=== PATIENT | female | born 1945 | race Two or more races ===

== ENCOUNTER 2023-01-26 14:57 | Outpatient (CLI) | payer OTHER | END 2023-01-26 15:05 | disposition home or self-care (01) | LOC: RAD 14:57 | PROVIDERS: ATTEND Internal Medicine Hematology & Oncology | DX: C92.10 Chronic myeloid leukemia, BCR/ABL-positive, not having achieved remission (principal) ==

== ENCOUNTER 2023-02-19 21:51 | Inpatient (IN) | payer OTHER ==
[~2023-02-19] VITALS: Ht 154.9 cm; Wt 40.8 kg
--- NOTE | 2023-02-19 22:33 | NUR ---
SE RECIBE FEMENINA DE 77 ANOS ALERTA Y ORIENTADA X3 QUIEN REFIERE SOB Y DOLOR DE PECHO. SE JASMYNE EKG Y SE MONITOREAN SV Y SES UBICA EN CRITICI 2.
[2023-02-19 23:24] LABS: ABG PH 7.329 (7.35-7.45); ABG PO2 78.9 mmHg (80-100); ABG pCO2 39.1 mmHg (35-45); BASE EXCESS -5.3 mmol/l; BICARBONATE 20.1 mmol/l (23-25); SaO2 94.2 %; Tco2 21.3 mmol/l
[2023-02-19 23:25] LABS: allen test SATISFACTORY; o2 100 %; puncture site RADIAL RIGHT
--- NOTE | 2023-02-19 23:58 | NUR ---
A EVALUA A PTE Y GERARDO DA ORDEN DE [place] MEDICO. SE COLECTAN MUESTRAS DE LAB POR PERSONAL DE TERAPIA RESP DE MANERA ARTERIAL, YA QUE SE INTECTO COLECTAR VIA VENA, SALMA NO SE OBTUVO EXITO. SE ADMINISTRAN MEDICAMENTOS ELISHA ORDEN MEDICA. SE INSERTA ZAVALA USANDO MEDIDAS ASEPTICAS Y ESTERILES, PTE TOLERA PROCEDIMIENTO Y SE LE EDUCA SOBRE PROPOSTIO DE GERARDO. AL MOMENTO SE COLOCA BOLSA DE ZAVALA A GRAVEDAD Y VIDES ELIMANDO APROX 600ML.
[2023-02-20 00:01] LABS: HEMOGLOBIN 12.3 g/dL (12.0-15.00); MEAN CELL VOLUME 84.1 fL (80.00-100.00); MEAN CORPUSCULAR HEMOGLOBIN 27.2 pg (27.00-32.0); MEAN CORPUSCULAR HGB CONC 32.3 g/dl (32.0-36.0); PLATELET COUNT 545 K/uL (150-450); RED BLOOD COUNT 4.52 M/uL (4.00-6.00); RED CELL DISTRIBUTION WIDTH 17.8 % (11.5-14.5)
[2023-02-20 00:13] LABS: BILIRUBIN TOTAL 0.17 mg/dL (0.3-1.2); CALCIUM 8.6 mg/dL (8.5-10.1); CREATININE SERUM 1.25 mg/dL (0.55-1.02); GFR 41.78; GLOBULINA 5.4 G/DL (2.4-3.5); POTASSIUM 3.97 mEq/L (3.5-5.1); TOTAL PROTEIN 8.4 gm/dL (6.4-8.2)
[2023-02-20 00:15] LABS: ALT/SGPT 38 U/L (12-78); AST/SGOT 57 U/L (15-37); LDH 235 U/L (84-246); PHOSPHOKINASE CREATININE 84 U/L (26-192)
[2023-02-20 03:16] LABS: ABG PH 7.412 (7.35-7.45); ABG PO2 155.5 mmHg (80-100); ABG pCO2 34.3 mmHg (35-45); BASE EXCESS -2.4 mmol/l; BICARBONATE 21.3 mmol/l (23-25); SaO2 99.4 %; Tco2 22.4 mmol/l
--- NOTE | 2023-02-20 04:55 | NUR ---
SE NOTIFICA A QUE PTE REFIERE DOLOR DE LISETH. EL MISMO DA ORDEN VERBAL DE QUE SE ADMINISTRE MED ADM PARA ALIVIAR DOLOR BAJO LA FIRMA DEL . SE ADM MED ELISHA ORDEN MEDICA.
[2023-02-20 05:44] LABS: INR 1.13; PARTIAL THROMBOPLASTIN TIME 28.8 SECONDS (22.0-34.0); PROTHROMBIN TIME 11.8 SECONDS (9.0-11.5)
[2023-02-20 07:12] LABS: allen test SATISFACTORY; o2 100 %; puncture site RADIAL RIGHT
--- NOTE | 2023-02-20 08:11 | NUR ---
SE RECIBE PTE ALERTA Y ORIENTADO POR 3 EN EL AREA DE CRITICO EN EL CUBICULO #2 CONECTADO A MONITO CARDIACO Y OXIMETRIA DE PULSO, PTE CAQNALIZADA EN EL BRAZO DERECHO CON ANGIO #20 SE OBSERVA VENOPUNCION PATENTE Y HAILEE DE EDEMA, PTE NO PRESENTA DOLOR AL MOMENTO PTE SE MANTIENE EN OBSERVACION Y BAJO TRATAMIENTO EN ESPERA DEL DR OTT.
[2023-02-20 14:22] LABS: CKMB 5.1 NG/ML (0.5-3.6)
[2023-02-20 21:25] LABS: CKMB 3.2 NG/ML (0.5-3.6)
[2023-02-21 06:43] LABS: HEMATOCRIT 30.1 % (36.0-45.00); MEAN CELL VOLUME 81.8 fL (80.00-100.00); MEAN CORPUSCULAR HEMOGLOBIN 27.1 pg (27.00-32.0); MEAN CORPUSCULAR HGB CONC 33.2 g/dl (32.0-36.0); PLATELET COUNT 410 K/uL (150-450); RED BLOOD COUNT 3.68 M/uL (4.00-6.00); RED CELL DISTRIBUTION WIDTH 16.8 % (11.5-14.5)
[2023-02-21 07:07] LABS: ERYTHROCYTE SEDIMENTATION RATE > 130 mm/hr
[2023-02-21 07:10] LABS: PH,URINE 5.5 (5.0-8.0); URINE APPEARANCE Turbid; URINE BILIRRUBIN Negative (NEGATIVE); URINE BLOOD Moderate; URINE COLOR Yellow; URINE GLUCOSE Negative (NEGATIVE); URINE LEUKOCYTE Large; URINE NITRATE Negative; URINE UROBILINOGEN 0.2 E.U./dl
[2023-02-21 07:21] LABS: CKMB 2.4 NG/ML (0.5-3.6)
[2023-02-21 07:25] LABS: URINE EPITHELIAL CELLS 19.4 uL (0.0-38.8); URINE RBC 76.1 uL (0.0-20.8)
[2023-02-21 07:27] LABS: BILIRUBIN TOTAL 0.39 mg/dL (0.3-1.2); CALCIUM 8.7 mg/dL (8.5-10.1); CREATININE SERUM 1.11 mg/dL (0.55-1.02); GFR 47.92; GLOBULINA 4.4 G/DL (2.4-3.5); POTASSIUM 3.61 mEq/L (3.5-5.1); T4 FREE 1.02 NG/ML (0.76-1.46); TOTAL PROTEIN 7.4 gm/dL (6.4-8.2); TSH 2.06 uIU/mL (0.358-3.74)
[2023-02-21 07:40] LABS: URINE BACTERIA > 9821.5 uL (0.0-1933); URINE PROTEIN 100 (NEGATIVE)
[2023-02-21 07:42] LABS: C-REACTIVE PROTEIN 2.53 MG/DL (0.00-0.29); CHOL HDL RATIO 5.4 (0-5.0)
[2023-02-21 09:36] LABS: INR 1.14; PARTIAL THROMBOPLASTIN TIME 31.4 SECONDS (22.0-34.0); PROTHROMBIN TIME 11.9 SECONDS (9.0-11.5)
[2023-02-22 08:32] LABS: URINE PROT QUANT 24HR 58.4 MG/DL
[2023-02-22 08:36] LABS: URINE PROT QUANT 24 HR 861.4 MG/24HR (42-225)
[2023-02-23 06:25] LABS: HEMATOCRIT 27.1 % (36.0-45.00); HEMOGLOBIN 9.4 g/dL (12.0-15.00); MEAN CELL VOLUME 81.5 fL (80.00-100.00); MEAN CORPUSCULAR HEMOGLOBIN 28.4 pg (27.00-32.0); MEAN CORPUSCULAR HGB CONC 34.9 g/dl (32.0-36.0); PLATELET COUNT 359 K/uL (150-450); RED BLOOD COUNT 3.33 M/uL (4.00-6.00)
[2023-02-23 06:55] LABS: ALBUMIN 2.8 gm/dL (3.4-5.0); BILIRUBIN TOTAL 0.19 mg/dL (0.3-1.2); CALCIUM 8.4 mg/dL (8.5-10.1); CREATININE SERUM 1.19 mg/dL (0.55-1.02); GFR 44.22; GLOBULINA 4.6 G/DL (2.4-3.5); POTASSIUM 3.3 mEq/L (3.5-5.1); TOTAL PROTEIN 7.4 gm/dL (6.4-8.2)
[2023-02-23 07:04] LABS: C-REACTIVE PROTEIN 5.45 MG/DL (0.00-0.29)
[2023-02-23 07:07] LABS: ERYTHROCYTE SEDIMENTATION RATE > 130 mm/hr
[2023-02-27 07:48] LABS: HEMATOCRIT 28.8 % (36.0-45.00); MEAN CELL VOLUME 83.5 fL (80.00-100.00); MEAN CORPUSCULAR HGB CONC 33.5 g/dl (32.0-36.0); PLATELET COUNT 466 K/uL (150-450); RED BLOOD COUNT 3.44 M/uL (4.00-6.00)
[2023-02-27 08:03] LABS: HEMOGLOBIN 9.6 g/dL (12.0-15.00); MEAN CORPUSCULAR HEMOGLOBIN 27.9 pg (27.00-32.0)
[2023-02-27 08:40] LABS: CREATININE SERUM 1.21 mg/dL (0.55-1.02); GFR 43.38; MAGNESIUM 1.6 mg/dL (1.8-2.4); PHOSPHOROUS 3.8 mg/dL (2.5-4.9); POTASSIUM 4.43 mEq/L (3.5-5.1)
[2023-02-27 08:48] LABS: C-REACTIVE PROTEIN 6.15 MG/DL (0.00-0.29)
[2023-03-01 10:22] LABS: HEMATOCRIT 28.2 % (36.0-45.00); HEMOGLOBIN 9.6 g/dL (12.0-15.00); MEAN CELL VOLUME 82.4 fL (80.00-100.00); MEAN CORPUSCULAR HGB CONC 33.9 g/dl (32.0-36.0); PLATELET COUNT 485 K/uL (150-450); RED BLOOD COUNT 3.43 M/uL (4.00-6.00); RED CELL DISTRIBUTION WIDTH 16.8 % (11.5-14.5)
[2023-03-01 10:33] LABS: ERYTHROCYTE SEDIMENTATION RATE 85 mm/hr
[2023-03-01 10:59] LABS: CALCIUM 9.2 mg/dL (8.5-10.1); CREATININE SERUM 1.68 mg/dL (0.55-1.02); GFR 29.7; MAGNESIUM 1.5 mg/dL (1.8-2.4); PHOSPHOROUS 4.7 mg/dL (2.5-4.9); POTASSIUM 4.36 mEq/L (3.5-5.1)
[2023-03-01 11:00] LABS: C-REACTIVE PROTEIN 3.33 MG/DL (0.00-0.29)
[2023-03-04 05:49] LABS: HEMATOCRIT 27.4 % (36.0-45.00); MEAN CELL VOLUME 82.8 fL (80.00-100.00); MEAN CORPUSCULAR HGB CONC 33.2 g/dl (32.0-36.0); PLATELET COUNT 494 K/uL (150-450); RED BLOOD COUNT 3.31 M/uL (4.00-6.00); RED CELL DISTRIBUTION WIDTH 16.5 % (11.5-14.5)
[2023-03-04 05:57] LABS: ALBUMIN 2.9 gm/dL (3.4-5.0); BILIRUBIN TOTAL 0.15 mg/dL (0.3-1.2); CREATININE SERUM 1.66 mg/dL (0.55-1.02); GFR 30.12; GLOBULINA 4.3 G/DL (2.4-3.5); POTASSIUM 4.09 mEq/L (3.5-5.1); TOTAL PROTEIN 7.2 gm/dL (6.4-8.2)
[2023-03-04 05:59] LABS: C-REACTIVE PROTEIN 1.62 MG/DL (0.00-0.29)
[2023-03-04 06:06] LABS: HEMOGLOBIN 9.1 g/dL (12.0-15.00); MEAN CORPUSCULAR HEMOGLOBIN 27.4 pg (27.00-32.0)
[2023-03-04 06:10] LABS: ERYTHROCYTE SEDIMENTATION RATE 89 mm/hr
[2023-03-04] MEDS ORDERED: ALPRAZOLAM1 MG PO (13:56)
[2023-03-04] MEDS ORDERED: TOPROL XL50 M1 PO (13:56)
[2023-03-04] MEDS ORDERED: BUMETANIDE1 MG PO (13:56)
[2023-03-04] MEDS ORDERED: INTEGRA PLUS C1 EACH PO (13:56)
[2023-03-04] MEDS ORDERED: POM (MEDICAMENTO EN PO (13:56)
[2023-03-04] MEDS ORDERED: PANTOPRAZOLE SO40 MG PO (13:56)
[2023-03-04] MEDS ORDERED: NeuRONTin 400MG CAPS PO (13:56)
[2023-03-04] MEDS ORDERED: BRILINTA90 MG PO (13:56)
[2023-03-04] MEDS ORDERED: FAMOTIDINE20 MG PO (13:56)
[2023-03-04] MEDS ORDERED: LIPITOR40 M1 PO (13:56)
[2023-03-04] MEDS ORDERED: Neurin-Sl Tablet Sl SL (13:56)
== END 2023-03-04 18:20 | disposition home or self-care (01) | DRG 281 ==
LOC: ER 21:51 → ICU-2 02-20 13:19 → SEC-K 02-23 07:15 → MEDI 02-23 19:59 → MEDJ 02-28 14:50
PROVIDERS: Emergency Medicine; Internal Medicine Geriatric Medicine; Internal Medicine Nephrology; ADMIT Internal Medicine; ATTEND Internal Medicine
PROC: B24BYZZ Ultrasonography of Heart with Aorta using Other Contrast (ICD-10-PCS; 2023-02-20)
PROC: 3E0F7GC Introduction of Other Therapeutic Substance into Respiratory Tract, Via Natural or Artificial Opening (ICD-10-PCS; 2023-02-20)
PROC: 02HV33Z Insertion of Infusion Device into Superior Vena Cava, Percutaneous Approach (ICD-10-PCS; 2023-02-21)
PROC: BT43ZZZ Ultrasonography of Bilateral Kidneys (ICD-10-PCS; 2023-02-22)
PROC: 4A12X4Z Monitoring of Cardiac Electrical Activity, External Approach (ICD-10-PCS; 2023-02-23)
PROC: 8E0ZXY6 Isolation (ICD-10-PCS; principal; 2023-03-01)
DX: I11.0 Hypertensive heart disease with heart failure (principal); I21.4 Non-ST elevation (NSTEMI) myocardial infarction; I24.9 Acute ischemic heart disease, unspecified; J90 Pleural effusion, not elsewhere classified; N39.0 Urinary tract infection, site not specified; I50.9 Heart failure, unspecified; I10 Essential (primary) hypertension; I50.1 Left ventricular failure, unspecified; J40 Bronchitis, not specified as acute or chronic; Z85.3 Personal history of malignant neoplasm of breast; I50.20 Unspecified systolic (congestive) heart failure; B96.20 Unspecified Escherichia coli [E. coli] as the cause of diseases classified elsewhere; E11.40 Type 2 diabetes mellitus with diabetic neuropathy, unspecified; Z79.4 Long term (current) use of insulin; B96.1 Klebsiella pneumoniae [K. pneumoniae] as the cause of diseases classified elsewhere

== ENCOUNTER 2023-10-31 10:28 | Inpatient (IN) | payer OTHER ==
[~2023-10-31] VITALS: Ht 154.9 cm; Wt 45.4 kg
[~2023-10-31 10:28] MED LIST: ALPRAZOLAM1 MG PO; BRILINTA90 MG PO; BUMETANIDE1 MG PO; FAMOTIDINE20 MG PO; INTEGRA PLUS C1 EACH PO; LIPITOR40 M1 PO; NeuRONTin 400MG CAPS PO; Neurin-Sl Tablet Sl SL; PANTOPRAZOLE SO40 MG PO; POM (MEDICAMENTO EN PO; TOPROL XL50 M1 PO
--- NOTE | 2023-10-31 10:51 | NUR ---
PACIENTE ALERTA Y ORIENTADA X3. SE RECIBE EN AMBULANCIA POR MALESTAR GENERAL, DOLOR MUSCULAR, FIEBRE, TOS, DEBILIDAD. PACIENTE SATURANDO OXIGENO MANUAL A 90%, DXT 168MG/DL. PACIENTE CON MASTECTOMIA DE SENO L+, AMPUTACION DE PIERNA IZQUIERDA Y EDEMA EN BRAZO IZQUEIRDO. PACIENTE REFIERE LLEVA ASI MAS DE GURU SONG. SE UBICA EN CAMA CON BARANDAS ELEVADAS.
--- NOTE | 2023-10-31 11:41 | NUR ---
PACIENTE EVALUADA POR MD CALIXTOIEN ORDENA TRATAMIENTO MEDICO, SE LE ORIENTA A PACIENTE SOBRE EL MISMO Y VERBALIZA ENTENDER, SE LE COLECTAN MUESTRAS Y SE CANALIZA BAJO MEDIDAS ASEPTICAS. SE LE INSERTA FOLYE CATETER BAJO MEDIDAS ESTERILES.
[2023-10-31 11:56] LABS: ABG PH 7.417 (7.35-7.45); ABG PO2 75.7 mmHg (80-100); ABG pCO2 30.3 mmHg (35-45); SaO2 95.1 %
[2023-10-31 11:57] LABS: BASE EXCESS -1.4 mmol/l; BICARBONATE 19.1 mmol/l (23-25); allen test SATISFACTORY; o2 28 %; puncture site RADIAL LEFT
[2023-10-31 12:03] LABS: PH,URINE 5.5 (5.0-8.0); URINE APPEARANCE Clear; URINE BILIRRUBIN Negative (NEGATIVE); URINE BLOOD Negative; URINE COLOR Yellow; URINE GLUCOSE Negative (NEGATIVE); URINE LEUKOCYTE Negative; URINE NITRATE Negative; URINE UROBILINOGEN 0.2 E.U./dl
[2023-10-31 12:04] LABS: HEMATOCRIT 27.9 % (36.0-45.00); HEMOGLOBIN 9.6 g/dL (12.0-15.00); MEAN CORPUSCULAR HEMOGLOBIN 29.7 pg (27.00-32.0); MEAN CORPUSCULAR HGB CONC 34.6 g/dl (32.0-36.0); PLATELET COUNT 496 K/uL (150-450); RED BLOOD COUNT 3.24 M/uL (4.00-6.00); RED CELL DISTRIBUTION WIDTH 14.2 % (11.5-14.5)
[2023-10-31 12:06] LABS: URINE BACTERIA 8.8 uL (0.0-1933); URINE RBC 4.7 uL (0.0-20.8)
[2023-10-31] MEDS ORDERED: FUROsemide 20 MG/2 ML VIAL IV STA (12:07)
[2023-10-31 12:18] LABS: URINE PROTEIN 100 (NEGATIVE); URINE WBC 0.9 uL (0.0-23.2)
[2023-10-31 12:23] LABS: BILIRUBIN TOTAL 0.24 mg/dL (0.3-1.2); CALCIUM 8.9 mg/dL (8.5-10.1); CREATININE SERUM 1.28 mg/dL (0.55-1.02); GFR 40.54; GLOBULINA 5.3 G/DL (2.4-3.5); INR 1.04; PARTIAL THROMBOPLASTIN TIME 31.9 SECONDS (22.0-34.0); POTASSIUM 4.47 mEq/L (3.5-5.1); PROTHROMBIN TIME 10.9 SECONDS (9.0-11.5); TOTAL PROTEIN 8.3 gm/dL (6.4-8.2)
[2023-10-31 14:14] LABS: C-REACTIVE PROTEIN 5.27 MG/DL (0.00-0.29)
--- NOTE | 2023-10-31 18:43 | NUR ---
SE RECIBE PACIENTE ALERTA Y ORIENTADA X 3 ESFERAS EN CAMA CON BARANDAS ELEVADAS POR SEGURIDAD EN COMPANIA DE FAMILIAR. H/L EN BRAZO DERECHO AREA HAILEE DE EDEMA Y ERITEMA. SONDA URINARIA DRENANDO A GRAVEDAD. PENDIENTE CONSULTA CON DR.RIVERA PATEL. SE MANTIENE EN OBSERVACION POR CAMBIOS.
[2023-10-31] MEDS ORDERED: IPRATROPIUM BROMIDE 0.5 MG/2.5 ML AMPUL.NEB IH SCH (19:15)
[2023-10-31] MEDS ORDERED: CEFTRIAXONE SODIUM 2,000 MG in 0.9 % SODIUM CHLORIDE 100 ML IV SCH (19:22)
[2023-10-31] MEDS ORDERED: NITROGLYCERIN IN 5 % DEXTROSE 250 ML IV SCH (19:34)
[2023-10-31] MEDS ORDERED: KETOROLAC TROMETHAMINE 30 MG VIAL IU ONE (19:45)
[2023-10-31] MEDS ORDERED: DEXTROSE 50 % IN WATER 0.5 G/ML DISP.SYRIN IV PRN (20:00)
[2023-10-31] MEDS ORDERED: INSULIN LISPRO 1,000 UNIT/10 ML UNITS SUBCUTANEO PRN (20:00)
[2023-10-31 20:08] LABS: ABG PH 7.421 (7.35-7.45); ABG PO2 93.4 mmHg (80-100); ABG pCO2 32.3 mmHg (35-45); BASE EXCESS -2.9 mmol/l; BICARBONATE 20.5 mmol/l (23-25); SaO2 97.3 %; Tco2 21.5 mmol/l
[2023-10-31 20:22] LABS: allen test SATISFACTORY; o2 21 %; puncture site RADIAL RIGHT
[2023-10-31] MEDS ORDERED: FUROsemide 20 MG/2 ML VIAL IV SCH (21:00)
[2023-11-01] MEDS ORDERED: ENOXAPARIN SODIUM 40 MG/0.4 ML SYRINGE SUBCUTANEO SCH (09:00)
[2023-11-01] MEDS ORDERED: METOPROLOL SUCCINATE 25 MG TAB.SR.24H PO SCH (09:00)
[2023-11-01] MEDS ORDERED: FAMOTIDINE/PF 20 MG in 0.9 % SODIUM CHLORIDE 8 ML IV PUSH SCH (09:00)
[2023-11-01] MEDS ORDERED: KETOROLAC TROMETHAMINE 30 MG VIAL IM SCH (10:35)
[2023-11-01] MEDS ORDERED: TRAMADOL HCL 50 MG TABLET PO SCH (10:47)
[2023-11-02 05:36] LABS: HEMATOCRIT 28.6 % (36.0-45.00); HEMOGLOBIN 9.9 g/dL (12.0-15.00); MEAN CELL VOLUME 87.4 fL (80.00-100.00); MEAN CORPUSCULAR HEMOGLOBIN 30.2 pg (27.00-32.0); MEAN CORPUSCULAR HGB CONC 34.6 g/dl (32.0-36.0); PLATELET COUNT 414 K/uL (150-450); RED BLOOD COUNT 3.27 M/uL (4.00-6.00); RED CELL DISTRIBUTION WIDTH 14.4 % (11.5-14.5)
[2023-11-02 05:59] LABS: ALBUMIN 2.7 gm/dL (3.4-5.0); BILIRUBIN TOTAL 0.17 mg/dL (0.3-1.2); CALCIUM 8.8 mg/dL (8.5-10.1); CREATININE SERUM 1.3 mg/dL (0.55-1.02); GFR 39.82; GLOBULINA 4.4 G/DL (2.4-3.5); MAGNESIUM 1.7 mg/dL (1.8-2.4); PHOSPHOROUS 3.9 mg/dL (2.5-4.9); POTASSIUM 4.34 mEq/L (3.5-5.1); TOTAL PROTEIN 7.1 gm/dL (6.4-8.2)
[2023-11-02 07:05] LABS: MYCOPLASMA PNEUMONIAE IGM REACTIVE (NO REACTIVE)
[2023-11-02] MEDS ORDERED: levoFLOXacin IN DEXTROSE 5 % 150 ML IV SCH (17:00)
[2023-11-04 06:20] LABS: HEMATOCRIT 25.2 % (36.0-45.00); MEAN CELL VOLUME 86.1 fL (80.00-100.00); MEAN CORPUSCULAR HGB CONC 34.8 g/dl (32.0-36.0); PLATELET COUNT 364 K/uL (150-450); RED BLOOD COUNT 2.93 M/uL (4.00-6.00); RED CELL DISTRIBUTION WIDTH 14.3 % (11.5-14.5)
[2023-11-04 06:26] LABS: ALBUMIN 2.4 gm/dL (3.4-5.0); BILIRUBIN TOTAL 0.17 mg/dL (0.3-1.2); CALCIUM 8.6 mg/dL (8.5-10.1); CREATININE SERUM 1.61 mg/dL (0.55-1.02); GFR 31.11; GLOBULINA 3.7 G/DL (2.4-3.5); POTASSIUM 4.25 mEq/L (3.5-5.1); TOTAL PROTEIN 6.1 gm/dL (6.4-8.2)
[2023-11-04 06:32] LABS: HEMOGLOBIN 8.8 g/dL (12.0-15.00)
[2023-11-04] MEDS ORDERED: TRAMADOL HCL 50 MG TABLET PO SCH (21:00)
[2023-11-04] MEDS ORDERED: GABAPENTIN 300 MG CAPSULE PO SCH (21:00)
[2023-11-05] MEDS ORDERED: FAMOTIDINE/PF 20 MG/2 ML VIAL ONE (07:58)
[2023-11-05] MEDS ORDERED: ALPRAzolam 1 MG TABLET PO SCH (10:16)
[2023-11-05] MEDS ORDERED: TRAMADOL HCL 50 MG TABLET PO SCH (17:00)
[2023-11-06 08:03] LABS: HEMATOCRIT 26.6 % (36.0-45.00); HEMOGLOBIN 9.3 g/dL (12.0-15.00); MEAN CELL VOLUME 86.3 fL (80.00-100.00); MEAN CORPUSCULAR HEMOGLOBIN 30.2 pg (27.00-32.0); PLATELET COUNT 426 K/uL (150-450); RED BLOOD COUNT 3.08 M/uL (4.00-6.00); RED CELL DISTRIBUTION WIDTH 14.3 % (11.5-14.5)
[2023-11-06 08:18] LABS: ALBUMIN 2.6 gm/dL (3.4-5.0); BILIRUBIN TOTAL 0.18 mg/dL (0.3-1.2); CALCIUM 8.9 mg/dL (8.5-10.1); CREATININE SERUM 1.35 mg/dL (0.55-1.02); GFR 38.13; GLOBULINA 3.7 G/DL (2.4-3.5); POTASSIUM 4.28 mEq/L (3.5-5.1); TOTAL PROTEIN 6.3 gm/dL (6.4-8.2)
[2023-11-07 19:07] LABS: PLEURAL FLUID APPEARANCE TURBID
[2023-11-07 19:08] LABS: PLEURAL FLUID COLOR RED-BLOODY
[2023-11-07 19:22] LABS: TP PLEURAL FLUID 5.1 g/dl
[2023-11-07 19:59] LABS: MONONUCLEAR 94 %; POLYMORPHONUCLEAR 6 %
[2023-11-08] MEDS ORDERED: TRAMADOL HCL 50 MG TABLET PO SCH ×2 (12:37→21:00)
[2023-11-09] MEDS ORDERED: DOCUSATE CALCIUM 240 MG CAPSULE PO SCH (11:14)
[2023-11-09] MEDS ORDERED: FAMOTIDINE/PF 20 MG/2 ML VIAL IV SCH (23:00)
[2023-11-11 07:04] LABS: HEMATOCRIT 29.9 % (36.0-45.00); HEMOGLOBIN 10.3 g/dL (12.0-15.00); MEAN CELL VOLUME 84.9 fL (80.00-100.00); MEAN CORPUSCULAR HEMOGLOBIN 29.2 pg (27.00-32.0); MEAN CORPUSCULAR HGB CONC 34.4 g/dl (32.0-36.0); PLATELET COUNT 422 K/uL (150-450); RED BLOOD COUNT 3.52 M/uL (4.00-6.00); RED CELL DISTRIBUTION WIDTH 14.1 % (11.5-14.5)
[2023-11-11 07:38] LABS: ALBUMIN 2.6 gm/dL (3.4-5.0); BILIRUBIN TOTAL 0.36 mg/dL (0.3-1.2); CREATININE SERUM 1.66 mg/dL (0.55-1.02); GFR 30.04; GLOBULINA 4.3 G/DL (2.4-3.5); MAGNESIUM 1.4 mg/dL (1.8-2.4); PHOSPHOROUS 3.9 mg/dL (2.5-4.9); POTASSIUM 3.87 mEq/L (3.5-5.1); TOTAL PROTEIN 6.9 gm/dL (6.4-8.2)
[2023-11-11] MEDS ORDERED: MOMETASONE FUROATE 15 GM TUBE TOP SCH ×2 (21:00)
[2023-11-12] MEDS ORDERED: TRAMADOL HCL 50 MG TABLET PO SCH (21:00)
[2023-11-13] MEDS ORDERED: TRAMADOL HCL 50 MG TABLET PO SCH (13:00)
[2023-11-13] MEDS ORDERED: GABAPENTIN 300 MG CAPSULE PO SCH (17:00)
[2023-11-13] MEDS ORDERED: ALPRAzolam 1 MG TABLET PO SCH (21:00)
[2023-11-15] MEDS ORDERED: FAMOtidine 20 MG TABLET PO SCH (09:00)
== END 2023-11-17 14:33 | disposition home or self-care (01) | DRG 291 ==
LOC: ER 10:28 → MEDI 20:12 → MEDJ 11-10 15:11
PROVIDERS: Emergency Medicine; General Practice; Internal Medicine; Internal Medicine Infectious Disease; Radiology Vascular & Interventional Radiology; ADMIT Internal Medicine; ATTEND Internal Medicine
PROC: 3E0F7GC Introduction of Other Therapeutic Substance into Respiratory Tract, Via Natural or Artificial Opening (ICD-10-PCS; 2023-11-01)
PROC: 4A12X4Z Monitoring of Cardiac Electrical Activity, External Approach (ICD-10-PCS; 2023-11-01)
PROC: 0W9B30Z Drainage of Left Pleural Cavity with Drainage Device, Percutaneous Approach (ICD-10-PCS; principal; 2023-11-07)
PROC: 0W9930Z Drainage of Right Pleural Cavity with Drainage Device, Percutaneous Approach (ICD-10-PCS; 2023-11-08)
PROC: 5A0945A Assistance with Respiratory Ventilation, 24-96 Consecutive Hours, High Flow/Velocity Cannula (ICD-10-PCS; 2023-11-12)
PROC: 0WPBX0Z Removal of Drainage Device from Left Pleural Cavity, External Approach (ICD-10-PCS; 2023-11-16)
DX: I11.0 Hypertensive heart disease with heart failure (principal); I50.31 Acute diastolic (congestive) heart failure; J91.8 Pleural effusion in other conditions classified elsewhere; I31.39 Other pericardial effusion (noninflammatory); J95.811 Postprocedural pneumothorax; B96.0 Mycoplasma pneumoniae [M. pneumoniae] as the cause of diseases classified elsewhere; E11.9 Type 2 diabetes mellitus without complications; Z95.818 Presence of other cardiac implants and grafts; F41.9 Anxiety disorder, unspecified; Z79.4 Long term (current) use of insulin

== ENCOUNTER 2023-12-01 15:36 | Inpatient (IN) | payer OTHER ==
[~2023-12-01] VITALS: Ht 154.9 cm; Wt 47.6 kg
--- NOTE | 2023-12-01 16:22 | NUR ---
SE RECIBE PACIENTE ALERTA Y ORIENTADA X 3 ESFERAS LA CUAL INDICA QUE PRESENTA DEBILIDAD DESDE HACE DOS SONG. PACIENTE INDICA QUE PRESENTA DOLOR DE PECHO DESDE HACE SOY SEMANA POR LA INSERCION DE UN TUBO DE PECHO.
[2023-12-01] MEDS ORDERED: 0.9 % SODIUM CHLORIDE 1,000 ML IV STA (17:04)
[2023-12-01 18:25] LABS: HEMATOCRIT 26.8 % (36.0-45.00); HEMOGLOBIN 9.4 g/dL (12.0-15.00); MEAN CELL VOLUME 83.4 fL (80.00-100.00); MEAN CORPUSCULAR HEMOGLOBIN 29.1 pg (27.00-32.0); MEAN CORPUSCULAR HGB CONC 34.9 g/dl (32.0-36.0); PLATELET COUNT 761 K/uL (150-450); RED BLOOD COUNT 3.22 M/uL (4.00-6.00); RED CELL DISTRIBUTION WIDTH 14.3 % (11.5-14.5)
--- NOTE | 2023-12-01 18:27 | NUR ---
PTE ALERTA Y ORIENTADA X3, RN RHODES ORIENTA SOBRE TX MEDICO Y REFIERE ACEPTAR. CANALIZA Y COLECTA MUESTRAS DE LAB BAJO MEDIDAS ASEPTICAS. PENDIENTE A REALIZAR ABG Y CT.
[2023-12-01 18:42] LABS: ABG PH 7.503 (7.35-7.45); ABG PO2 76.9 mmHg (80-100); ABG pCO2 23.1 mmHg (35-45); BASE EXCESS -3.2 mmol/l; BICARBONATE 17.7 mmol/l (23-25); SaO2 96.4 %; Tco2 18.4 mmol/l
[2023-12-01 18:43] LABS: allen test SATISFACTORY; o2 21 %; puncture site RADIAL RIGHT
[2023-12-01 18:45] LABS: INR 1.07; PARTIAL THROMBOPLASTIN TIME 33.4 SECONDS (22.0-34.0); PROTHROMBIN TIME 11.2 SECONDS (9.0-11.5)
[2023-12-01 18:56] LABS: BILIRUBIN TOTAL 0.22 mg/dL (0.3-1.2); CALCIUM 8.1 mg/dL (8.5-10.1); CREATININE SERUM 1.21 mg/dL (0.55-1.02); GFR 43.26; GLOBULINA 5.6 G/DL (2.4-3.5); POTASSIUM 4.05 mEq/L (3.5-5.1); TOTAL PROTEIN 7.6 gm/dL (6.4-8.2)
--- NOTE | 2023-12-01 21:59 | NUR ---
SE RECIBE PACIENTE ALERTA Y ORIENTADA X3 DE OBSERVACION. SE UBICA EN CAMA #2 DE ICU-2. SE CONECTA A MONITOR CARDIACO Y OXIMETRIA DE PULSO. SE ORIENTA A FAMILIAR ACERCA DE REGLAS DE LA UNIDAD Y REFIERE ENTENDER. SE JOSE ANTONIO A PACIENTE EN CAMA CON BARANDAS ELEVADAS Y A NIVEL MAS BAJO EN ESPERA DE ORDENES MEDICAS.
[2023-12-01] MEDS ORDERED: ACETAMINOPHEN 500 MG GEL..CAP PO PRN (23:45)
[2023-12-01] MEDS ORDERED: ONDANSETRON HCL 4 MG in 0.9 % SODIUM CHLORIDE 50 ML IV PRN (23:45)
[2023-12-01] MEDS ORDERED: CEFEPIME HCL 1,000 MG in 0.9 % SODIUM CHLORIDE 50 ML IV SCH (23:46)
[2023-12-01] MEDS ORDERED: FUROsemide 20 MG/2 ML VIAL IV SCH (23:49)
[2023-12-02 01:38] LABS: PH,URINE 5.5 (5.0-8.0); URINE APPEARANCE Clear; URINE BILIRRUBIN Negative (NEGATIVE); URINE BLOOD Negative; URINE COLOR Yellow; URINE GLUCOSE Negative (NEGATIVE); URINE KETONE Negative (NEGATIVE); URINE LEUKOCYTE Negative; URINE NITRATE Negative; URINE UROBILINOGEN 0.2 E.U./dl
[2023-12-02 01:39] LABS: URINE BACTERIA 17.6 uL (0.0-1933); URINE EPITHELIAL CELLS 4.4 uL (0.0-38.8); URINE RBC 5.9 uL (0.0-20.8); URINE WBC 3.7 uL (0.0-23.2)
[2023-12-02 01:42] LABS: URINE PROTEIN 100 (NEGATIVE)
[2023-12-02] MEDS ORDERED: VANCOMYCIN HCL 1,000 MG VIAL IV SCH (09:00)
[2023-12-02] MEDS ORDERED: FAMOTIDINE/PF 20 MG in 0.9 % SODIUM CHLORIDE 8 ML IV PUSH SCH (09:00)
[2023-12-02] MEDS ORDERED: ENOXAPARIN SODIUM 30 MG/0.3 ML SYRINGE SUBCUTANEO SCH (09:00)
[2023-12-02 19:58] LABS: TP PLEURAL FLUID 4.6 g/dl
[2023-12-02] MEDS ORDERED: ALPRAzolam 0.5 MG TABLET PO SCH (21:00)
[2023-12-02 21:25] LABS: MONONUCLEAR 28 %; PLEURAL FLUID APPEARANCE HAZY; PLEURAL FLUID COLOR YELLOW; POLYMORPHONUCLEAR 72 %
[2023-12-03] MEDS ORDERED: METRONIDAZOLE/SODIUM CHLORIDE 500 MG/100 ML PIGGYBACK IV SCH (17:00)
[2023-12-06 09:27] LABS: MEAN CELL VOLUME 82.6 fL (80.00-100.00); MEAN CORPUSCULAR HEMOGLOBIN 27.7 pg (27.00-32.0); MEAN CORPUSCULAR HGB CONC 33.5 g/dl (32.0-36.0); PLATELET COUNT 834 K/uL (150-450); RED BLOOD COUNT 3.03 M/uL (4.00-6.00); RED CELL DISTRIBUTION WIDTH 14.8 % (11.5-14.5)
[2023-12-06 09:28] LABS: HEMOGLOBIN 8.4 g/dL (12.0-15.00)
[2023-12-06 10:21] LABS: BILIRUBIN TOTAL 0.33 mg/dL (0.3-1.2); CALCIUM 8.6 mg/dL (8.5-10.1); CREATININE SERUM 1.39 mg/dL (0.55-1.02); GFR 36.86; POTASSIUM 4.14 mEq/L (3.5-5.1)
[2023-12-06] MEDS ORDERED: KETOROLAC TROMETHAMINE 30 MG VIAL IM ONE (20:15)
[2023-12-06] MEDS ORDERED: NITROGLYCERIN IN 5 % DEXTROSE 50 MG/250 ML BOTTLE IV ONE (20:45)
[2023-12-06] MEDS ORDERED: NITROGLYCERIN IN 5 % DEXTROSE 50 MG/250 ML BOTTLE IV SCH (21:00)
[2023-12-07 08:55] LABS: MEAN CELL VOLUME 81.3 fL (80.00-100.00); MEAN CORPUSCULAR HGB CONC 33.6 g/dl (32.0-36.0); PLATELET COUNT 739 K/uL (150-450); RED BLOOD COUNT 2.69 M/uL (4.00-6.00); RED CELL DISTRIBUTION WIDTH 15.2 % (11.5-14.5)
[2023-12-07 09:42] LABS: HEMATOCRIT 21.9 % (36.0-45.00); HEMOGLOBIN 7.3 g/dL (12.0-15.00); MEAN CORPUSCULAR HEMOGLOBIN 27.1 pg (27.00-32.0)
[2023-12-07 09:45] LABS: CALCIUM 8.8 mg/dL (8.5-10.1); CREATININE SERUM 1.22 mg/dL (0.55-1.02); GFR 42.85; POTASSIUM 4.51 mEq/L (3.5-5.1)
[2023-12-08 08:14] LABS: HEMATOCRIT 25.5 % (36.0-45.00); MEAN CELL VOLUME 81.2 fL (80.00-100.00); PLATELET COUNT 651 K/uL (150-450); RED BLOOD COUNT 3.14 M/uL (4.00-6.00); RED CELL DISTRIBUTION WIDTH 15.4 % (11.5-14.5)
[2023-12-08 08:20] LABS: MEAN CORPUSCULAR HEMOGLOBIN 26.7 pg (27.00-32.0)
[2023-12-08 08:21] LABS: HEMOGLOBIN 8.4 g/dL (12.0-15.00)
[2023-12-08] MEDS ORDERED: AMINO ACIDS/PROTEIN HYDROLYS 30 ML BLIST.PACK PO SCH (09:00)
[2023-12-08] MEDS ORDERED: CEFEPIME HCL 2,000 MG VIAL IV SCH (12:00)
[2023-12-09 10:43] LABS: ABG PH 7.519 (7.35-7.45); ABG PO2 77.1 mmHg (80-100); ABG pCO2 25.7 mmHg (35-45); BASE EXCESS -0.7 mmol/l; BICARBONATE 20.5 mmol/l (23-25); SaO2 96.7 %; Tco2 21.3 mmol/l
[2023-12-09 10:54] LABS: allen test SATISFACTORY; o2 21 %; puncture site RADIAL RIGHT
[2023-12-09] MEDS ORDERED: TRAMADOL HCL 50 MG TABLET PO STA (11:25)
[2023-12-09 14:55] LABS: HEMATOCRIT 35.9 % (36.0-45.00); HEMOGLOBIN 12.3 g/dL (12.0-15.00); MEAN CELL VOLUME 80.5 fL (80.00-100.00); MEAN CORPUSCULAR HEMOGLOBIN 27.6 pg (27.00-32.0); MEAN CORPUSCULAR HGB CONC 34.2 g/dl (32.0-36.0); PLATELET COUNT 704 K/uL (150-450); RED BLOOD COUNT 4.45 M/uL (4.00-6.00); RED CELL DISTRIBUTION WIDTH 15.5 % (11.5-14.5)
[2023-12-09] MEDS ORDERED: ACETAMINOPHEN 500 MG GEL..CAP PO SCH (17:00)
[2023-12-09] MEDS ORDERED: Pregabalin 25 MG CAPSULE PO STA ×2 (20:52→20:54)
[2023-12-09] MEDS ORDERED: TRAMADOL HCL 50 MG TABLET PO SCH (21:00)
[2023-12-10] MEDS ORDERED: Pregabalin 25 MG CAPSULE PO SCH (13:00)
[2023-12-12 06:54] LABS: HEMATOCRIT 34.8 % (36.0-45.00); HEMOGLOBIN 11.6 g/dL (12.0-15.00); MEAN CELL VOLUME 82.8 fL (80.00-100.00); MEAN CORPUSCULAR HEMOGLOBIN 27.6 pg (27.00-32.0); MEAN CORPUSCULAR HGB CONC 33.4 g/dl (32.0-36.0); PLATELET COUNT 652 K/uL (150-450); RED CELL DISTRIBUTION WIDTH 15.3 % (11.5-14.5)
[2023-12-12] MEDS ORDERED: MORPHINE SULFATE 4 MG/ML CARTRIDGE IV PRN (08:45)
[2023-12-12] MEDS ORDERED: METROnidazole 500 MG TABLET PO SCH (17:00)
[2023-12-14 06:37] LABS: HEMATOCRIT 34.4 % (36.0-45.00); HEMOGLOBIN 11.8 g/dL (12.0-15.00); MEAN CELL VOLUME 82.5 fL (80.00-100.00); MEAN CORPUSCULAR HEMOGLOBIN 28.4 pg (27.00-32.0); MEAN CORPUSCULAR HGB CONC 34.4 g/dl (32.0-36.0); PLATELET COUNT 650 K/uL (150-450); RED BLOOD COUNT 4.16 M/uL (4.00-6.00); RED CELL DISTRIBUTION WIDTH 15.9 % (11.5-14.5)
[2023-12-14 07:25] LABS: ALBUMIN 1.9 gm/dL (3.4-5.0); CREATININE SERUM 0.76 mg/dL (0.55-1.02); GFR 73.99; PHOSPHOROUS 2.8 mg/dL (2.5-4.9); POTASSIUM 4.16 mEq/L (3.5-5.1)
[2023-12-14 07:42] LABS: MAGNESIUM 1.3 mg/dL (1.8-2.4)
[2023-12-15] MEDS ORDERED: TRAMADOL HCL 50 MG TABLET PO STA (01:14)
[2023-12-15] MEDS ORDERED: TRAMADOL HCL 50 MG TABLET PO SCH ×2 (01:15→11:00)
[2023-12-15] MEDS ORDERED: Pregabalin 50 MG CAPSULE PO STA (01:29)
[2023-12-15] MEDS ORDERED: Pregabalin 50 MG CAPSULE PO SCH (01:30)
[2023-12-15] MEDS ORDERED: PREGABALIN PO SCH (21:00)
[2023-12-16] MEDS ORDERED: MAGNESIUM SULFATE IN WATER 50 ML IV NR (11:12)
[2023-12-16 16:35] LABS: HEMATOCRIT 34.9 % (36.0-45.00); HEMOGLOBIN 11.4 g/dL (12.0-15.00); MEAN CELL VOLUME 83.1 fL (80.00-100.00); MEAN CORPUSCULAR HGB CONC 32.5 g/dl (32.0-36.0); PLATELET COUNT 691 K/uL (150-450); RED CELL DISTRIBUTION WIDTH 15.6 % (11.5-14.5)
[2023-12-16 16:59] LABS: ALBUMIN 2.1 gm/dL (3.4-5.0); BILIRUBIN TOTAL 0.34 mg/dL (0.3-1.2); CALCIUM 9.4 mg/dL (8.5-10.1); CREATININE SERUM 0.94 mg/dL (0.55-1.02); GFR 57.9; GLOBULINA 5.5 G/DL (2.4-3.5); POTASSIUM 4.99 mEq/L (3.5-5.1); TOTAL PROTEIN 7.6 gm/dL (6.4-8.2)
[2023-12-17] MEDS ORDERED: TRAMADOL HCL 50 MG TABLET PO STA (13:56)
[2023-12-17] MEDS ORDERED: TRAMADOL HCL 50 MG TABLET PO SCH (21:00)
[2023-12-19 07:28] LABS: HEMATOCRIT 32.7 % (36.0-45.00); MEAN CELL VOLUME 82.4 fL (80.00-100.00); MEAN CORPUSCULAR HEMOGLOBIN 27.7 pg (27.00-32.0); MEAN CORPUSCULAR HGB CONC 33.7 g/dl (32.0-36.0); PLATELET COUNT 609 K/uL (150-450); RED BLOOD COUNT 3.97 M/uL (4.00-6.00); RED CELL DISTRIBUTION WIDTH 15.5 % (11.5-14.5)
[2023-12-19 08:25] LABS: CALCIUM 9.4 mg/dL (8.5-10.1); CREATININE SERUM 0.7 mg/dL (0.55-1.02); GFR 81.36; POTASSIUM 4.48 mEq/L (3.5-5.1)
[2023-12-20] MEDS ORDERED: Pregabalin 25 MG CAPSULE PO ONE (22:45)
[2023-12-20] MEDS ORDERED: TRAMADOL HCL 50 MG TABLET PO SCH (23:00)
[2023-12-21] MEDS ORDERED: Pregabalin 50 MG CAPSULE PO SCH (09:00)
[2023-12-21] MEDS ORDERED: METROnidazole 500 MG TABLET (vss) PO SCH (11:43)
[2023-12-21] MEDS ORDERED: METROnidazole 500 MG TABLET PO SCH (17:00)
[2023-12-22 09:48] LABS: ALBUMIN 1.9 gm/dL (3.4-5.0); ALKALINE PHOSPHATASE 46 U/L (50-136); ANION GAP 9 (10.0-20.0); AST/SGOT 11 U/L (15-37); BLOOD UREA NITROGEN 46 mg/dL (7-18); BUN CREA RATIO 71 (7.0-25.0); CALCIUM 8.9 mg/dL (8.5-10.1); CARBON DIOXIDE 29 mEq/L (21-32); CHLORIDE 102 mmol/L (98-107); CREATININE SERUM 0.65 mg/dL (0.55-1.02); GFR 88.62; GLOBULINA 4.9 G/DL (2.4-3.5); GLUCOSE FASTING 154 mg/dL (65-100); OSMOLALITY SERUM 287 MOSM/KG (275-295); POTASSIUM 4.27 mEq/L (3.5-5.1); SODIUM 136 mmol/L (136-145); TOTAL PROTEIN 6.8 gm/dL (6.4-8.2)
[2023-12-22 09:56] LABS: ALT/SGPT < 6 U/L (12-78)
[2023-12-22 20:30] LABS: HEMATOCRIT 32.3 % (36.0-45.00); HEMOGLOBIN 10.9 g/dL (12.0-15.00); MEAN CORPUSCULAR HEMOGLOBIN 27.3 pg (27.00-32.0); MEAN CORPUSCULAR HGB CONC 33.7 g/dl (32.0-36.0); PLATELET COUNT 557 K/uL (150-450); RED BLOOD COUNT 3.99 M/uL (4.00-6.00)
[2023-12-22 20:43] LABS: ERYTHROCYTE SEDIMENTATION RATE > 130 mm/hr
== END 2023-12-23 14:02 | disposition home or self-care (01) | DRG 871 ==
LOC: ER 15:38 → ICU-2 23:49 → SEC-K 12-02 19:05 → SURH 12-02 20:38
PROVIDERS: Emergency Medicine; General Practice; Internal Medicine; Internal Medicine Critical Care Medicine; Internal Medicine Infectious Disease; Internal Medicine Nephrology; Radiology Vascular & Interventional Radiology; Student in an Organized Health Care Education/Training Program; ADMIT Internal Medicine; ATTEND Internal Medicine
PROC: BW24ZZZ Computerized Tomography (CT Scan) of Chest and Abdomen (ICD-10-PCS; 2023-12-01)
PROC: 0W9B3ZZ Drainage of Left Pleural Cavity, Percutaneous Approach (ICD-10-PCS; principal; 2023-12-02)
PROC: 4A12X4Z Monitoring of Cardiac Electrical Activity, External Approach (ICD-10-PCS; 2023-12-03)
PROC: 02HV33Z Insertion of Infusion Device into Superior Vena Cava, Percutaneous Approach (ICD-10-PCS; 2023-12-07)
PROC: 30243N1 Transfusion of Nonautologous Red Blood Cells into Central Vein, Percutaneous Approach (ICD-10-PCS; 2023-12-08)
PROC: 0W9B30Z Drainage of Left Pleural Cavity with Drainage Device, Percutaneous Approach (ICD-10-PCS; 2023-12-13)
PROC: BW24ZZZ Computerized Tomography (CT Scan) of Chest and Abdomen (ICD-10-PCS; 2023-12-20)
DX: A41.9 Sepsis, unspecified organism (principal); J18.9 Pneumonia, unspecified organism; J86.9 Pyothorax without fistula; J90 Pleural effusion, not elsewhere classified; N17.9 Acute kidney failure, unspecified; J98.11 Atelectasis; I50.30 Unspecified diastolic (congestive) heart failure; R09.02 Hypoxemia; R06.02 Shortness of breath; D72.829 Elevated white blood cell count, unspecified; I50.9 Heart failure, unspecified; D64.9 Anemia, unspecified; G54.6 Phantom limb syndrome with pain

== ENCOUNTER 2025-03-09 10:50 | Inpatient (IN) | payer OTHER ==
[~2025-03-09] VITALS: Ht 154.9 cm; Wt 59.0 kg
--- NOTE | 2025-03-09 11:03 | NUR ---
SE RECIBE PACIENTE EN AMBULANCIA ALERTA Y ORIENTADA EN SPENCER GURU ESFERAS REFIERE QUE ROSEANNE SE REALIZO UN ESTUDIO DONDE LE INDICARON TENIA PULMONIA.
--- NOTE | 2025-03-09 11:48 | NUR ---
SE ORIENTA A PACIENTE SOBRE ORDENES MEDICAS, REFIERE ENTENDER. SE COLECTAN MUESTRAS DE LABORATORIO BAJO MEDIDAS ASEPTICAS. SE ENTREGA ENVASE PARA U/A. SE NOTIFICAN ABGS A TERAPIA RESPIRATORIA.
[2025-03-09 11:54] LABS: BASO % 1.0 % (0.1-1.2); EOS # 0.42 (0.04-0.54); EOS % 4.4 % (0.7-7.0); LYMPH # 1.31 (1.18-3.74); LYMPH % 13.6 % (19.3-53.1); MEAN PLATELET VOLUME 9.80 fl (9.4-12.4); MONO # 0.59 (0.24-0.82); MONO % 6.1 % (4.7-12.5); NEUT # 7.13 (1.56-6.13); NEUT % 74.2 % (34.0-71.1); RED CELL DISTRIBUTION WIDTH 15.9 % (11.6-14.4)
[2025-03-09 12:18] LABS: ALT/SGPT 17.0 U/L (12-78); AST/SGOT 14.0 U/L (15-37); BILIRUBIN TOTAL 0.16 mg/dL (0.3-1.2); BUN CREA RATIO 31.0 (7.0-25.0); GFR 45.3; GLOBULINA 5.8 G/DL (2.4-3.5)
[2025-03-09 12:19] LABS: CREATININE SERUM 1.16 mg/dL (0.55-1.02); GLUCOSE FASTING 217.0 mg/dL (65-100); OSMOLALITY SERUM 289.0 MOSM/KG (275-295)
[2025-03-09 12:20] LABS: D DIMER 13.28 MG/L
[2025-03-09 14:42] LABS: INR 1.04
[2025-03-09] MEDS ORDERED: LEVALBUTEROL HCL 1.25 MG/3 ML SOLUTION IH SCH (18:37)
[2025-03-09] MEDS ORDERED: FAMOtidine 10 MG/ML (4ML VIAL) IV ONE (18:45)
[2025-03-09] MEDS ORDERED: MORPHINE SULFATE 2 MG/ML SYRINGE IV PRN (18:45)
[2025-03-09] MEDS ORDERED: CEFTRIAXONE SODIUM 1,000 MG VIAL IV ONE (18:45)
[2025-03-09] MEDS ORDERED: 0.9 % SODIUM CHLORIDE 1,000 ML IV ONE (18:45)
[2025-03-09] MEDS ORDERED: LEVALBUTEROL HCL 1.25 MG/3 ML SOLUTION IH ONE (19:07)
[2025-03-09] MEDS ORDERED: CEFTRIAXONE SODIUM 1,000 MG VIAL ONE (19:42)
[2025-03-09] MEDS ORDERED: FAMOTIDINE/PF 20 MG/2 ML VIAL ONE (19:43)
--- NOTE | 2025-03-09 20:23 | NUR ---
SE ORIENTA PTE SOBRE TX A SEGUIR, LA MISMA REFIERE ENTENDER. SE JASMYNE MUESTRA DE LABS, SE CANALIZA, SE ADMINISTRA MED ELISHA ORDEN MEDICA Y SE INSERTA ZAVALA BAJO MEDIDAS ESTERILES
[2025-03-09 20:44] VITALS: BP 135/75; O2SAT 98
[2025-03-09] MEDS ORDERED: PIPERACILLIN/TAZOBACTAM SODIUM 3.375 GM VIAL IV SCH (21:16)
[2025-03-09] MEDS ORDERED: TICAGRELOR 90 MG TABLET PO SCH (21:26)
[2025-03-09] MEDS ORDERED: PIPERACILLIN/TAZOBACTAM SODIUM 3.375 GM VIAL IV ONE (21:28)
[2025-03-09] MEDS ORDERED: TICAGRELOR 90 MG TABLET PO ONE (21:29)
[2025-03-09] MEDS ORDERED: ONDANSETRON HCL 4 MG in 0.9 % SODIUM CHLORIDE 50 ML IV PRN (21:30)
[2025-03-09] MEDS ORDERED: INSULIN LISPRO 1,000 UNIT/10 ML UNITS SUBCUTANEO PRN (21:30)
[2025-03-09] MEDS ORDERED: DEXTROSE 50 % IN WATER 0.5 G/ML DISP.SYRIN IV PRN (21:30)
[2025-03-09] MEDS ORDERED: ACETAMINOPHEN 325 MG TABLET PO PRN (21:30)
[2025-03-09] MEDS ORDERED: ATORVASTATIN CALCIUM 40 MG TABLET PO SCH (21:32)
[2025-03-09] MEDS ORDERED: hydrALAZINE HCL 20 MG VIAL IV PRN (21:45)
[2025-03-09 23:30] VITALS: BP 125/62; O2SAT 100
[2025-03-10] MEDS ORDERED: PIPERACILLIN/TAZOBACTAM SODIUM 3.375 GM VIAL IV ONE (01:15)
[2025-03-10 02:29] LABS: URINE APPEARANCE Clear; URINE BILIRRUBIN Negative (NEGATIVE); URINE BLOOD NHT; URINE COLOR Yellow; URINE GLUCOSE Negative (NEGATIVE); URINE KETONE Negative (NEGATIVE); URINE LEUKOCYTE Trace; URINE NITRATE Negative; URINE PROTEIN Negative (NEGATIVE); URINE UROBILINOGEN 0.2 E.U./dl
[2025-03-10 02:33] LABS: URINE BACTERIA 8.3 uL (0.0-1933); URINE RBC 14.0 uL (0.0-20.8); URINE WBC 4.3 uL (0.0-23.2)
[2025-03-10 02:40] LABS: URINE CAST 0.00 uL (0.0-1.40); URINE EPITHELIAL CELLS 0.9 uL (0.0-38.8)
[2025-03-10 08:00] VITALS: BP 70/50; O2SAT 98
[2025-03-10 09:00] VITALS: BP 108/46
[2025-03-10] MEDS ORDERED: NOREPINEPHRINE BITARTRATE 1 MG/ML AMPUL IV ONE (09:01)
[2025-03-10 09:15] VITALS: BP 90/50
[2025-03-10] MEDS ORDERED: NOREPINEPHRINE BITARTRATE 8 MG in DEXTROSE 5 % IN WATER 250 ML IV SCH (09:15)
[2025-03-10] MEDS ORDERED: ACETAMINOPHEN 500 MG GEL..CAP PO PRN (10:00)
[2025-03-10 11:00] VITALS: BP 156/80; O2SAT 100
[2025-03-10 11:30] VITALS: BP 113/71; O2SAT 100
[2025-03-10 12:00] VITALS: O2SAT 100
[2025-03-10] MEDS ORDERED: TRAMADOL HCL 50 MG TABLET PO PRN (18:45)
[2025-03-11] VITALS (7 sets, daily range): BP systolic 115–160; BP diastolic 70–78; O2SAT 90–100
[2025-03-11 09:05] LABS: BASO % 1.3 % (0.1-1.2); EOS # 0.49 (0.04-0.54); EOS % 5.0 % (0.7-7.0); LYMPH # 1.14 (1.18-3.74); LYMPH % 11.7 % (19.3-53.1); MEAN PLATELET VOLUME 9.60 fl (9.4-12.4); MONO # 0.67 (0.24-0.82); MONO % 6.9 % (4.7-12.5); NEUT # 7.29 (1.56-6.13); NEUT % 74.5 % (34.0-71.1); RED CELL DISTRIBUTION WIDTH 15.9 % (11.6-14.4)
[2025-03-11 09:45] LABS: BUN CREA RATIO 22.0 (7.0-25.0); CREATININE SERUM 1.12 mg/dL (0.55-1.02); GFR 47.17; OSMOLALITY SERUM 284.0 MOSM/KG (275-295)
[2025-03-11 09:46] LABS: GLUCOSE FASTING 203.0 mg/dL (65-100)
[2025-03-11 20:54] LABS: GLU PLEURAL FLUID 219.0 mg/dl; LDH PLEURAL FLUID 212.0 U/L; TP PLEURAL FLUID 4.1 g/dl
[2025-03-11 21:16] LABS: MONONUCLEAR 96.0 %; POLYMORPHONUCLEAR 4.0 %
[2025-03-12 00:29] VITALS: BP 122/66; O2SAT 99
[2025-03-12 01:02] VITALS: O2SAT 72
[2025-03-12 08:22] VITALS: BP 100/60
[2025-03-12 08:39] VITALS: BP 99/53; O2SAT 100
[2025-03-12] MEDS ORDERED: LINEZOLID 600 MG TABLET PO NR (13:00)
[2025-03-12 15:30] VITALS: BP 165/71; O2SAT 95
[2025-03-12 17:29] VITALS: O2SAT 100
[2025-03-12] MEDS ORDERED: LINEZOLID 600 MG TABLET PO SCH (21:00)
[2025-03-13 01:30] VITALS: BP 123/79; O2SAT 97
[2025-03-13 09:12] VITALS: BP 145/65; O2SAT 100
[2025-03-13 15:15] VITALS: BP 133/74; O2SAT 99
[2025-03-13] MEDS ORDERED: TRAMADOL HCL 50 MG TABLET PO PRN (18:15)
[2025-03-14 01:53] VITALS: BP 142/80; O2SAT 99
[2025-03-14 08:54] VITALS: BP 130/65; O2SAT 100
[2025-03-14 16:00] VITALS: BP 180/90; O2SAT 99
[2025-03-14] MEDS ORDERED: ENALAPRILAT DIHYDRATE 1.25 MG/ML VIAL IV PRN (16:45)
[2025-03-14] MEDS ORDERED: LACTULOSE 20 G/30 ML BLIST.PACK PO NR (17:30)
[2025-03-14] MEDS ORDERED: MINERAL OIL 30 ML BLIST.PACK PO NR (17:30)
[2025-03-14] MEDS ORDERED: MAGNESIUM HYDROXIDE 30 ML BLIST.PACK PO NR (17:30)
[2025-03-14 17:51] VITALS: BP 167/67
[2025-03-14 19:42] VITALS: BP 145/67; O2SAT 96
[2025-03-15] VITALS (7 sets, daily range): BP systolic 92–145; BP diastolic 58–84; O2SAT 98–100
[2025-03-15 10:57] LABS: BASO % 1.0 % (0.1-1.2); EOS # 0.24 (0.04-0.54); EOS % 2.0 % (0.7-7.0); LYMPH # 1.33 (1.18-3.74); LYMPH % 11.0 % (19.3-53.1); MEAN PLATELET VOLUME 10.00 fl (9.4-12.4); MONO # 0.85 (0.24-0.82); MONO % 7.0 % (4.7-12.5); NEUT # 9.50 (1.56-6.13); NEUT % 78.6 % (34.0-71.1); RED CELL DISTRIBUTION WIDTH 15.9 % (11.6-14.4)
[2025-03-15 11:24] LABS: BUN CREA RATIO 20.0 (7.0-25.0); CREATININE SERUM 1.35 mg/dL (0.55-1.02); GFR 38.02; GLUCOSE FASTING 152.0 mg/dL (65-100); OSMOLALITY SERUM 282.0 MOSM/KG (275-295)
[2025-03-16] VITALS (10 sets, daily range): BP systolic 136–164; BP diastolic 79–84; O2SAT 90–100
[2025-03-16] MEDS ORDERED: TRAMADOL HCL 50 MG TABLET PO PRN (10:45)
[2025-03-16] MEDS ORDERED: HYOSCYAMINE SULFATE 0.125 MG TAB.SUBL SL SCH (13:00)
[2025-03-17] VITALS (9 sets, daily range): BP systolic 119–173; BP diastolic 74–105; O2SAT 98–100
[2025-03-17] MEDS ORDERED: FAMOTIDINE/PF 20 MG/2 ML VIAL IV STA (10:58)
[2025-03-17] MEDS ORDERED: FAMOTIDINE/PF 20 MG/2 ML VIAL IV SCH (21:00)
[2025-03-18 02:03] VITALS: O2SAT 100
[2025-03-18 03:33] VITALS: BP 110/63; O2SAT 100
[2025-03-18 08:23] VITALS: BP 156/82; O2SAT 98
[2025-03-18 09:31] VITALS: O2SAT 100
[2025-03-18 17:02] VITALS: BP 149/69; O2SAT 100
[2025-03-18 21:57] VITALS: O2SAT 100
[2025-03-18] MEDS ORDERED: TRAMADOL HCL 50 MG TABLET PO PRN (22:30)
[2025-03-19] VITALS (7 sets, daily range): BP systolic 93–160; BP diastolic 56–81; O2SAT 90–100
[2025-03-19] MEDS ORDERED: PIPERACILLIN/TAZOBACTAM SODIUM 2.25 GM in DEXTROSE 5 % IN WATER 50 ML IV SCH
[2025-03-19] MEDS ORDERED: DOXYCYCLINE HYCLATE 100MG EACH PO SCH (09:00)
[2025-03-19] MEDS ORDERED: CLONAZEPAM 0.5 MG TABLET PO PRN (10:15)
[2025-03-19 10:59] LABS: BASO % 0.9 % (0.1-1.2); EOS # 0.12 (0.04-0.54); EOS % 1.4 % (0.7-7.0); LYMPH # 1.22 (1.18-3.74); LYMPH % 14.2 % (19.3-53.1); MEAN PLATELET VOLUME 9.30 fl (9.4-12.4); MONO # 0.61 (0.24-0.82); MONO % 7.1 % (4.7-12.5); NEUT # 6.49 (1.56-6.13); NEUT % 75.8 % (34.0-71.1); RED CELL DISTRIBUTION WIDTH 15.8 % (11.6-14.4)
[2025-03-19 11:32] LABS: BUN CREA RATIO 17.0 (7.0-25.0); CREATININE SERUM 0.96 mg/dL (0.55-1.02); GFR 56.36; GLUCOSE FASTING 198.0 mg/dL (65-100); OSMOLALITY SERUM 282.0 MOSM/KG (275-295)
[2025-03-19] MEDS ORDERED: DEXTROSE 5%-WATER 50ML IV.SOLN ONE (17:07)
[2025-03-20] VITALS (9 sets, daily range): BP systolic 110–160; BP diastolic 65–84; O2SAT 89–100
== END 2025-03-20 21:02 | disposition home or self-care (01) | DRG 186 ==
LOC: ER 10:50 → SURG 21:26 → SEC-K 21:26 → SURG 03-10 02:40 → MEDI 03-14 17:25
PROVIDERS: General Practice; Internal Medicine; Physician Assistant Medical; Radiology Vascular & Interventional Radiology; ADMIT Student in an Organized Health Care Education/Training Program; ATTEND Student in an Organized Health Care Education/Training Program
PROC: BW24ZZZ Computerized Tomography (CT Scan) of Chest and Abdomen (ICD-10-PCS; 2025-03-09)
PROC: B24BYZZ Ultrasonography of Heart with Aorta using Other Contrast (ICD-10-PCS; 2025-03-09)
PROC: 4A12X4Z Monitoring of Cardiac Electrical Activity, External Approach (ICD-10-PCS; 2025-03-10)
PROC: 0W9930Z Drainage of Right Pleural Cavity with Drainage Device, Percutaneous Approach (ICD-10-PCS; principal; 2025-03-11)
PROC: 02HV33Z Insertion of Infusion Device into Superior Vena Cava, Percutaneous Approach (ICD-10-PCS; 2025-03-12)
PROC: 0WP930Z Removal of Drainage Device from Right Pleural Cavity, Percutaneous Approach (ICD-10-PCS; 2025-03-14)
PROC: BW24ZZZ Computerized Tomography (CT Scan) of Chest and Abdomen (ICD-10-PCS; 2025-03-18)
DX: J90 Pleural effusion, not elsewhere classified (principal); R65.21 Severe sepsis with septic shock; I50.30 Unspecified diastolic (congestive) heart failure; N17.9 Acute kidney failure, unspecified; C95.90 Leukemia, unspecified not having achieved remission; I95.9 Hypotension, unspecified; I50.9 Heart failure, unspecified; I10 Essential (primary) hypertension; E11.9 Type 2 diabetes mellitus without complications; Z79.4 Long term (current) use of insulin